=== PATIENT | male | born 1985 | race African-American/Black ===

== ENCOUNTER 2019-05-19 18:57 | Emergency (ER) | payer OTHER ==
[~2019-05-19] VITALS: Ht 170.2 cm; Wt 70.0 kg
[2019-05-19 19:00] VITALS: BP 121/82
== END 2019-05-20 | disposition left against medical advice (07) ==
LOC: ER 18:57
DX: Z53.21 Procedure and treatment not carried out due to patient leaving prior to being seen by health care provider (principal)